=== PATIENT | female | born 1960 ===

== ENCOUNTER 2017-10-30 16:06 | Emergency (ER) | payer OTHER ==
[~2017-10-30] VITALS: Ht 152.4 cm; Wt 98.0 kg
[~2017-10-30 16:06] MED LIST: ASPIR 8181 MG; FIORICET 50-301 EACH PO; LAMISIL250 MG PO; PRILOSEC40 MG PO; PROTONIX40 MG; PROVENTIL HFA6.7 GM IH
== END 2017-10-30 20:35 | disposition home or self-care (01) ==
LOC: ER 16:06
DX: R06.02 Shortness of breath (principal); R53.81 Other malaise

== ENCOUNTER 2017-11-23 06:24 | Outpatient (CLI) | payer OTHER | END 2017-11-23 06:34 | disposition home or self-care (01) | LOC: LAB 06:24 | DX: J45.41 Moderate persistent asthma with (acute) exacerbation (principal) ==

== ENCOUNTER 2018-01-11 07:42 | Outpatient (CLI) | payer OTHER | END 2018-01-11 07:49 | disposition home or self-care (01) | LOC: MRI 07:42 | DX: R51 Headache (principal) | CPT/HCPCS: 70552 ==

== ENCOUNTER → 2018-02-26 06:15 | Outpatient (CLI) | payer OTHER | END | disposition home or self-care (01) | LOC: LAB 06:15 | DX: G62.9 Polyneuropathy, unspecified (principal); R20.2 Paresthesia of skin; E03.9 Hypothyroidism, unspecified; E11.9 Type 2 diabetes mellitus without complications ==

== ENCOUNTER 2018-03-26 06:22 | Outpatient (CLI) | payer OTHER | END 2018-03-26 06:26 | disposition home or self-care (01) | LOC: LAB 06:22 | DX: G62.9 Polyneuropathy, unspecified (principal); E11.9 Type 2 diabetes mellitus without complications ==

== ENCOUNTER 2018-05-24 10:35 | Outpatient (CLI) | payer OTHER | END 2018-05-24 10:40 | disposition home or self-care (01) | LOC: LAB 10:35 | DX: J32.4 Chronic pansinusitis (principal) ==

== ENCOUNTER 2018-08-06 07:29 | Outpatient (CLI) | payer OTHER | END 2018-08-06 13:06 | disposition home or self-care (01) | LOC: MAMO-SONO 07:29 | DX: Z12.31 Encounter for screening mammogram for malignant neoplasm of breast (principal) ==

== ENCOUNTER 2018-09-24 08:03 | Inpatient (IN) | payer OTHER ==
[~2018-09-24] VITALS: Ht 170.2 cm; Wt 107.5 kg
== END 2018-10-09 19:52 | disposition home or self-care (01) | DRG 190 ==
LOC: ER 08:03 → SEC-K 18:40 → MEDI 18:40 → MEDJ 10-04 11:53
PROC: BW24ZZZ Computerized Tomography (CT Scan) of Chest and Abdomen (ICD-10-PCS; principal; 2018-09-28)
PROC: 3E0F7GC Introduction of Other Therapeutic Substance into Respiratory Tract, Via Natural or Artificial Opening (ICD-10-PCS; 2018-09-28)
PROC: 02HV33Z Insertion of Infusion Device into Superior Vena Cava, Percutaneous Approach (ICD-10-PCS; 2018-10-04)
DX: J44.1 Chronic obstructive pulmonary disease with (acute) exacerbation (principal); J80 Acute respiratory distress syndrome; J45.51 Severe persistent asthma with (acute) exacerbation; N17.9 Acute kidney failure, unspecified; B96.0 Mycoplasma pneumoniae [M. pneumoniae] as the cause of diseases classified elsewhere; K57.90 Diverticulosis of intestine, part unspecified, without perforation or abscess without bleeding; R53.83 Other fatigue; E66.8 Other obesity; E11.65 Type 2 diabetes mellitus with hyperglycemia; Z79.4 Long term (current) use of insulin; E11.22 Type 2 diabetes mellitus with diabetic chronic kidney disease; N18.2 Chronic kidney disease, stage 2 (mild); N76.0 Acute vaginitis; B96.89 Other specified bacterial agents as the cause of diseases classified elsewhere

== ENCOUNTER 2018-10-29 08:46 | Outpatient (CLI) | payer OTHER | END 2018-10-29 08:52 | disposition home or self-care (01) | LOC: RAD 08:46 | DX: R07.89 Other chest pain (principal) ==

== ENCOUNTER → 2019-02-04 06:16 | Outpatient (CLI) | payer OTHER | END | disposition home or self-care (01) | LOC: LAB 06:16 | DX: E06.5 Other chronic thyroiditis (principal); E11.9 Type 2 diabetes mellitus without complications; N39.0 Urinary tract infection, site not specified; E78.49 Other hyperlipidemia; B96.29 Other Escherichia coli [E. coli] as the cause of diseases classified elsewhere ==

== ENCOUNTER → 2019-05-03 | Outpatient (CLI) | payer OTHER | END | disposition home or self-care (01) | LOC: TOM 07:15 | DX: J44.9 Chronic obstructive pulmonary disease, unspecified (principal); R91.1 Solitary pulmonary nodule ==

== ENCOUNTER 2019-11-03 00:16 | Emergency (ER) | payer OTHER ==
[~2019-11-03] VITALS: Ht 172.7 cm; Wt 100.7 kg
[2019-11-03] MEDS ORDERED: DUI500 PO (01:47)
== END 2019-11-03 02:30 | disposition home or self-care (01) ==
LOC: ER 00:16
DX: H01.8 Other specified inflammations of eyelid (principal)

== ENCOUNTER 2019-11-30 06:15 | Outpatient (CLI) | payer OTHER ==
[~2019-11-30 06:15] MED LIST changes: +DUI500 PO
== END 2019-11-30 06:21 | disposition home or self-care (01) ==
LOC: LAB 06:15
DX: E11.9 Type 2 diabetes mellitus without complications (principal); I10 Essential (primary) hypertension; N39.0 Urinary tract infection, site not specified

== ENCOUNTER 2019-12-20 09:06 | Inpatient (IN) | payer OTHER ==
[~2019-12-20] VITALS: Ht 172.7 cm; Wt 99.8 kg
[2019-12-20] MEDS ORDERED: NASAL MIST126 ML (09:24)
[2019-12-20] MEDS ORDERED: RAYOS5 MG (09:24)
[2019-12-20] MEDS ORDERED: SYMBICORT 16010.2 GM (09:24)
--- NOTE | 2019-12-20 09:25 | NUR ---
SE RECIBE PTE ALERTA Y ORIENTADA X3,REFIERE TENER ASMA LA REFIERE EL A LA SDA DE ER.
== END 2020-01-08 16:14 | disposition home or self-care (01) | DRG 202 ==
LOC: ER 09:06 → MEDI 20:19 → MEDJ 20:19
PROVIDERS: ADMIT Internal Medicine
PROC: 4A033R1 Measurement of Arterial Saturation, Peripheral, Percutaneous Approach (ICD-10-PCS; principal; 2019-12-20)
PROC: 3E0F7GC Introduction of Other Therapeutic Substance into Respiratory Tract, Via Natural or Artificial Opening (ICD-10-PCS; 2019-12-20)
PROC: 8E0ZXY6 Isolation (ICD-10-PCS; 2019-12-21)
PROC: 09JY8ZZ Inspection of Sinus, Via Natural or Artificial Opening Endoscopic (ICD-10-PCS; 2019-12-27)
PROC: BB24ZZZ Computerized Tomography (CT Scan) of Bilateral Lungs (ICD-10-PCS; 2019-12-28)
DX: J20.8 Acute bronchitis due to other specified organisms (principal); J44.1 Chronic obstructive pulmonary disease with (acute) exacerbation; J45.901 Unspecified asthma with (acute) exacerbation; J45.902 Unspecified asthma with status asthmaticus; B96.0 Mycoplasma pneumoniae [M. pneumoniae] as the cause of diseases classified elsewhere; E09.9 Drug or chemical induced diabetes mellitus without complications; T38.0X5A Adverse effect of glucocorticoids and synthetic analogues, initial encounter; Y92.230 Patient room in hospital as the place of occurrence of the external cause; B95.62 Methicillin resistant Staphylococcus aureus infection as the cause of diseases classified elsewhere; B95.3 Streptococcus pneumoniae as the cause of diseases classified elsewhere; B95.61 Methicillin susceptible Staphylococcus aureus infection as the cause of diseases classified elsewhere

== ENCOUNTER 2020-11-16 11:30 | Outpatient (CLI) | payer OTHER ==
[~2020-11-16 11:30] MED LIST changes: +NASAL MIST126 ML; +RAYOS5 MG; +SYMBICORT 16010.2 GM
== END 2020-11-16 11:40 | disposition home or self-care (01) ==
LOC: TOM 11:30
PROVIDERS: ATTEND Otolaryngology
DX: J32.0 Chronic maxillary sinusitis (principal)

== ENCOUNTER 2020-11-26 08:52 | Outpatient (CLI) | payer OTHER | END 2020-11-26 17:56 | disposition home or self-care (01) | LOC: OFIC 805 08:52 | PROVIDERS: ATTEND Otolaryngology | DX: J45.998 Other asthma (principal); J34.2 Deviated nasal septum; J32.8 Other chronic sinusitis ==

== ENCOUNTER 2020-12-03 10:26 | Outpatient (CLI) | payer OTHER | END 2020-12-03 10:29 | disposition home or self-care (01) | LOC: LAB 10:26 | PROVIDERS: ATTEND Internal Medicine Pulmonary Disease | DX: Z03.818 Encounter for observation for suspected exposure to other biological agents ruled out (principal) ==

== ENCOUNTER 2020-12-17 09:28 | Outpatient (CLI) | payer OTHER | END 2020-12-17 15:05 | disposition home or self-care (01) | LOC: OFIC 805 09:28 | PROVIDERS: ATTEND Otolaryngology | DX: J34.2 Deviated nasal septum (principal); J43.8 Other emphysema; J32.8 Other chronic sinusitis; J45.998 Other asthma; E11.69 Type 2 diabetes mellitus with other specified complication ==

== ENCOUNTER 2023-03-06 08:01 | Outpatient (CLI) | payer OTHER | END 2023-03-06 08:34 | disposition home or self-care (01) | LOC: TOM 08:01 | PROVIDERS: ATTEND Specialist | DX: R19.5 Other fecal abnormalities (principal) ==